=== PATIENT | female | born 1985 | race Two or more races ===

== ENCOUNTER 2019-11-17 12:58 | Emergency (ER) | payer MEDICAID ==
[~2019-11-17] VITALS: Ht 157.5 cm; Wt 90.7 kg
[2019-11-17] MEDS ORDERED: MOME13HF2 INH (13:07)
[2019-11-17] MEDS ORDERED: METR500T PO (13:07)
[2019-11-17] MEDS ORDERED: ALBUTEROL SULFATE 8 GM HFA.AER.AD IH STA (13:17)
[2019-11-17] MEDS ORDERED: KETOROLAC TROMETHAMINE 30 MG INJ ONE (13:26)
[2019-11-17] MEDS ORDERED: ONDANSETRON 4 MG/2 ML VIAL ONE (13:26)
[2019-11-17 13:28] LABS: *URINE HCG, QUAL NEG (NEGATIVE)
[2019-11-17 13:29] LABS: *BILIRUBIN,URIN NEGATIVE (NEGATIVE); *CLARITY,URINE CLEAR (CLEAR); *COLOR,URINE YELLOW (YELLOW); *KETONES,URINE NEGATIVE (NEGATIVE); *UROBILINOGEN,URINE 0.2 E.U./dl (NORMAL); LEUKOCYTE ESTERASE ,URINE TRACE (NEGATIVE); NITRITE, URINE NEGATIVE (NEGATIVE); UGLUCOSE NEGATIVE (NEGATIVE)
[2019-11-17] MEDS ORDERED: ONDANSETRON 4 MG/2 ML VIAL IV ONE (13:30)
[2019-11-17] MEDS ORDERED: IV NORMAL SALINE 1000 ML BAG IV ONE (13:30)
[2019-11-17] MEDS ORDERED: HYDROMORPHONE 1 MG/1 ML DISP.SYRIN IV ONE ×2 (13:30→16:30)
[2019-11-17] MEDS ORDERED: KETOROLAC TROMETHAMINE 15 MG INJ IVP ONE (13:30)
[2019-11-17 13:35] LABS: BASOPHILS # (AUTO) 0.1 K/uL (0.0-8.0); BASOPHILS % (AUTO) 0.8 % (0.0-2.0); EOSINOPHILS # (AUTO) 0.2 K/uL (0.0-0.7); HEMATOCRIT 39.3 % (31.2-41.9); HEMOGLOBIN 12.9 g/dL (10.9-14.3); LYMPHOCYTES # (AUTO) 1.8 K/uL (20.0-40.0); LYMPHOCYTES % (AUTO) 22.3 % (20.5-51.5); MEAN CORPUSCULAR HEMOGLOBIN 28.4 uug (24.7-32.8); MEAN CORPUSCULAR HGB CONC 33 g/dL (32.3-35.6); MEAN CORPUSCULAR VOLUME 86.5 fL (75.5-95.3); MONOCYTES # (AUTO) 0.4 K/uL (2.0-10.0); MONOCYTES % (AUTO) 5.2 % (0.0-11.0); NEUTROPHILS # (AUTO) 5.7 K/uL (1.8-8.9); NEUTROPHILS % (AUTO) 69.7 % (38.5-71.5); PLATELET COUNT (AUTO) 347 K/uL (179-408); RED BLOOD CELL COUNT(AUTO) 4.55 MIL/uL (3.63-4.92); WHITE BLOOD COUNT (AUTO) 8.2 K/uL (3.8-11.8)
[2019-11-17 13:35] LABS: *BLOOD, URINE TRACE INTACT (NEGATIVE)
[2019-11-17] MEDS ORDERED: HYDROMORPHONE 1 MG/1 ML DISP.SYRIN ONE ×2 (13:35→16:34)
[2019-11-17 13:44] LABS: CREATININE 0.9 mg/dL (0.6-1.3); POTASSIUM 3.8 mmol/L (3.5-5.1)
[2019-11-17] MEDS ORDERED: IOHEXOL 300MG/ML 100 ML INFUS..BTL ONE (13:46)
[2019-11-17] MEDS ORDERED: SWABABLE VALVE TRANSFER SET EA MC ONE (13:46)
[2019-11-17] MEDS ORDERED: IV NORMAL SALINE 250 ML IV ONE (13:47)
[2019-11-17 13:50] LABS: BILIRUBIN,DIRECT 0.1 mg/dL (0.0-0.2); BILIRUBIN,TOTAL 0.3 mg/dL (0.2-1.0); TOTAL PROTEIN, SERUM 7.3 g/dL (6.4-8.2)
[2019-11-17 15:45] LABS: URINE AMORPHOUS URATE ABSENT /HPF
[2019-11-17 16:30] LABS: BACTERIA,URINE 3+ /HPF (NONE SEEN); MUCUS,URINE NONE SEEN /LPF (0-FEW); SQUAMOUS EPITHELIAL CELL,UR FEW /HPF (NONE SEEN)
[2019-11-17] MEDS ORDERED: PANTOPRAZOLE SODIUM 40 MG VIAL IV ONE (16:30)
[2019-11-17] MEDS ORDERED: DOXYCYCLINE HYCLATE 100 MG TABLET PO ONE (16:30)
[2019-11-17] MEDS ORDERED: LIDOCAINE VISCUS 2% 15 ML UDC MM ONE (16:30)
[2019-11-17] MEDS ORDERED: CEFTRIAXONE 500 MG VIAL IM ONE (16:30)
[2019-11-17] MEDS ORDERED: MAG HYDROX/AL HYDROX/SIMETH 30 ML LIQUID UDC PO ONE (16:30)
[2019-11-17] MEDS ORDERED: MAG HYDROX/AL HYDROX/SIMETH 30 ML LIQUID UDC ONE (16:41)
[2019-11-17] MEDS ORDERED: DOXYCYCLINE HYCLATE 100 MG TABLET ONE (16:41)
[2019-11-17] MEDS ORDERED: LIDOCAINE VISCUS 2% 15 ML UDC ONE (16:42)
[2019-11-17] MEDS ORDERED: CEFTRIAXONE 500 MG VIAL ONE (16:42)
[2019-11-17] MEDS ORDERED: PANTOPRAZOLE SODIUM 40 MG VIAL ONE (16:42)
--- NOTE | 2019-11-17 17:59 | NUR ---
IV removed. Catheter intact and site benign. Pressure and 4x4 gauze applied to site. No bleeding noted. Patient discharged to home in stable condition. Written and verbal after care instructions given. Patient verbalized understanding & compliance of instructions. Stressed follow up with gyne doctor/primary doctor or return to ER for worsening s/s.
[2019-11-20 08:13] LABS: *GC NAA Negative (Negative); *TRIC.VAG. NAA Negative (Negative)
== END 2019-11-17 18:01 | disposition home or self-care (01) ==
LOC: ER 12:58
DX: N83.202 Unspecified ovarian cyst, left side (principal); R10.32 Left lower quadrant pain; R00.1 Bradycardia, unspecified; J45.909 Unspecified asthma, uncomplicated; Z98.890 Other specified postprocedural states
CPT/HCPCS: 36415; 71045; 74177; 76856; 80048; 80076; 81001; 83690; 84703; 85025; 87491; 93005; 96365; 96375; 99285; C9113; J0696; J1170 ×2; J1885; J2405; Q9967; A4663; J3535; J7030; J7050

== ENCOUNTER 2020-06-18 17:45 | Emergency (ER) | payer MEDICAID ==
[~2020-06-18] VITALS: Ht 157.5 cm; Wt 95.3 kg
[~2020-06-18 17:45] MED LIST: METR500T PO; MOME13HF2 INH
--- NOTE | 2020-06-18 18:30 | NUR ---
Patient discharged to home in stable condition. Written and verbal after care instructions given. Patient verbalizes understanding of instructions. Stressed follow up or return to ER for worsening s/s.pt walks in steady gait.
== END 2020-06-18 18:30 | disposition home or self-care (01) ==
LOC: ER 17:46
DX: S93.402A Sprain of unspecified ligament of left ankle, initial encounter (principal); W18.40XA Slipping, tripping and stumbling without falling, unspecified, initial encounter; Y93.01 Activity, walking, marching and hiking; Y92.89 Other specified places as the place of occurrence of the external cause; J45.909 Unspecified asthma, uncomplicated; R03.0 Elevated blood-pressure reading, without diagnosis of hypertension
CPT/HCPCS: 73610; A4663